=== PATIENT | male | born 1975 | race Caucasian/White ===

== ENCOUNTER 2016-12-21 12:04 | Emergency (ER) | payer MEDICARE, MEDICAID ==
[~2016-12-21 12:04] MED LIST: ASPI81TA85 PO; OXYC15TA76 PO; SERT-138 PO; SIMV40TA2 PO; TRAM300T9 PO; ZOCO80TA; ZOLO50TA PO
[2016-12-21] MEDS ORDERED: PERCOCET 5MG/325MG TAB As Ordered ONE (13:10)
[2016-12-21] MEDS ORDERED: KETOROLAC 30 MG/ML VIAL (J1885) As Ordered ONE (13:10)
[2016-12-21] MEDS ORDERED: ADACEL/BOOSTRIX VACCINE (DIPHTH/PERTUSS/ACELL/TETANUS)0.5ML SYR (90715) As Ordered ONE (13:10)
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
--- NOTE | 2016-12-21 14:21 | REP ---
MANDIBLE SERIES: Four views. HISTORY: Mandibular injury. FINDINGS: The bony mandible appears intact. No condylar or mandible body fracture is seen. There are carious teeth at the angle of the mandible on the left posteriorly. No bony destructive lesion is seen. IMPRESSION: No fracture seen. Carious teeth. Signed by Delmar Staley MD 12/21/2016 02:25 P
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
--- NOTE | 2016-12-21 14:50 | EDDOCDS ---
Physician Documentation [facility] Name: Charles Rea Age: 41 yrs Sex: Male : 1975 Arrival Date: 12/21/2016 Time: 12:04 Bed I6 / 28 Private MD: Angy Meza Disposition: 12/21/16 14:32 Discharged to Home/Self Care. Impression: Nondisplaced oblique fracture of shaft of left fibula - DISTAL LEFT FIB, Jaw pain - CONTUSION JAW. - Condition is Stable. - Discharge Instructions: Ankle Fracture, Crutch Use. - Prescriptions for [place] 5- 325 mg Oral Tablet - take 1 tablet by ORAL route every 6 hours As needed MDD: 4 tabs; 20 tablet. - Medication Reconciliation, Local Pharmacy Hours form. - Follow up: Emergency Department; When: As needed; Reason: Worsening of conditions. Follow up: [facility]; When: Call to arrange an appointment; Reason: Wound/Symptom Recheck, Recheck today's complaints, Continuance of care, To establish care. - Problem is new. - Symptoms have improved. Historical: - Allergies: no known allergies; - Home Meds: 1. Tramadol XR daily 2. atorvastatin 10 mg oral tab 1 tab once daily 3. Zoloft 25 mg Oral tab 1 tab once daily - PMHx: Hypercholesterolemia; Depression; back pain; - PSHx: Disc surgery; Appendectomy; - Social history: Smoking status: Patient states former smoker of tobacco. No barriers to communication noted, The patient speaks fluent [place], Speaks appropriately for age, Preferred Language:. - Family history: Not pertinent. - : The pt / caregiver states he / she is not on anticoagulants. Home medication list is obtained from the patient. - Exposure Risk Screening:: None identified. Vital Signs: 12/21 12:06 BP 151 / 97; Pulse 108; Resp 18 S; Temp 97.4(O); Pulse Ox 98% on R/A; Weight 99.79 kg / gr2 220 lbs (R); Height 5 ft. 11 in. (180.34 cm) (R); Pain 10/10; 14:45 BP 145 / 92 LA Sitting (auto/lg); Pulse 100; Resp 20; Temp 98.7; Pulse Ox 96% on R/A; bnb Pain 9/10; 12:06 Body Mass Index 30.68 (99.79 kg, 180.34 cm) gr2 Procedures: 14:19 Fracture care/splinting: (Stabilizing Care) Splint applied to left leg using Scotchcast dt4 applied by myself. Examined by me, post splint application: neurovascular intact, brisk capillary refill noted, Patient tolerated well, SUGAR TONG SPLINT APPLIED TO PT'S LEFT ANKLE/LOWER LEG. TOLERATED WELL.. MDM: 13:05 ketorolac 60 mg IM once ordered. dt4 13:05 oxyCODONE-acetaminophen 5 mg-325 mg 1 tabs PO once ordered. dt4 13:06 Ankle, Complete Ordered. EDMS 13:06 Mandible Ordered. EDMS 13:06 Tetanus- Diptheria-Acellular Pertussis 0.5 ml IM once; Routine booster 10-64yrs, >64 dt4 with child contact [employer] ordered. 13:53 Financial registration complete. lg 14:19 Crutches ordered. dt4 14:19 Splint Affected Extremity ordered. 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 Exp: 01/05/2019. Lot #: [id number]. } Route: IM; Site: left deltoid; 13:18 Drug: oxyCODONE-acetaminophen 1 tabs [oxycodone-acetaminophen 5 mg-325 mg tablet (1 jf3 tabs)] Route: PO; 13:19 Drug: ketorolac 60 mg [ketorolac 30 mg/mL (1 mL) injection solution (2 mL)] Route: IM; jf3 Site: right gluteus; Signatures: Dispatcher [employer] EDEze Holley,KEELY RN Hai Morrison, Jonh Reg Meche JonesRN RN jo3 Aleyda Young, PA-C PAMiltonC dt4 Celso Kendrick RN RN jf3 MTDD
--- NOTE | 2016-12-23 15:51 | EDDOCDS ---
Physician Documentation [facility] Name: Charles Rea Jr Age: 41 yrs Sex: Male : 1975 Arrival Date: 12/21/2016 Time: 12:04 Bed I6 / 28 Private MD: Angy Meza Disposition: 12/21/16 14:32 Discharged to Home/Self Care. Impression: Nondisplaced oblique fracture of shaft of left fibula - DISTAL LEFT FIB, Jaw pain - CONTUSION JAW. - Condition is Stable. - Discharge Instructions: Ankle Fracture, Crutch Use. - Prescriptions for [place] 5- 325 mg Oral Tablet - take 1 tablet by ORAL route every 6 hours As needed MDD: 4 tabs; 20 tablet. - Medication Reconciliation, Local Pharmacy Hours form. - Follow up: Emergency Department; When: As needed; Reason: Worsening of conditions. Follow up: [facility]; When: Call to arrange an appointment; Reason: Wound/Symptom Recheck, Recheck today's complaints, Continuance of care, To establish care. - Problem is new. - Symptoms have improved. Historical: - Allergies: no known allergies; - Home Meds: 1. Tramadol XR daily 2. atorvastatin 10 mg oral tab 1 tab once daily 3. Zoloft 25 mg Oral tab 1 tab once daily - PMHx: Hypercholesterolemia; Depression; back pain; - PSHx: Disc surgery; Appendectomy; - Social history: Smoking status: Patient states former smoker of tobacco. No barriers to communication noted, The patient speaks fluent Tristanian, Speaks appropriately for age, Preferred Language:. - Family history: Not pertinent. - : The pt / caregiver states he / she is not on anticoagulants. Home medication list is obtained from the patient. - Exposure Risk Screening:: None identified. Vital Signs: 12/21 12:06 BP 151 / 97; Pulse 108; Resp 18 S; Temp 97.4(O); Pulse Ox 98% on R/A; Weight 99.79 kg / gr2 220 lbs (R); Height 5 ft. 11 in. (180.34 cm) (R); Pain 10/10; 14:45 BP 145 / 92 LA Sitting (auto/lg); Pulse 100; Resp 20; Temp 98.7; Pulse Ox 96% on R/A; bnb Pain 9/10; 12:06 Body Mass Index 30.68 (99.79 kg, 180.34 cm) gr2 Procedures: 14:19 Fracture care/splinting: (Stabilizing Care) Splint applied to left leg using Scotchcast dt4 applied by myself. Examined by me, post splint application: neurovascular intact, brisk capillary refill noted, Patient tolerated well, SUGAR TONG SPLINT APPLIED TO PT'S LEFT ANKLE/LOWER LEG. TOLERATED WELL.. MDM: 13:05 ketorolac 60 mg IM once ordered. dt4 13:05 oxyCODONE-acetaminophen 5 mg-325 mg 1 tabs PO once ordered. dt4 13:06 Ankle, Complete Ordered. EDMS 13:06 Mandible Ordered. EDMS 13:06 Tetanus- Diptheria-Acellular Pertussis 0.5 ml IM once; Routine booster 10-64yrs, >64 dt4 with child contact [place] [employer] ordered. 13:53 Financial registration complete. lg 14:19 Crutches ordered. dt4 14:19 Splint Affected Extremity ordered. dt4 15:31 [facility] Payment Agreement was scanned into [employer] and attached to record. lg 12/22 11:41 T-Sheet-- Draft Copy was scanned into [employer] and attached to record. gb 11:41 Radiology Report was scanned into [employer] and attached to record. 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 Exp: 01/05/2019. Lot #: [id number]. } Route: IM; Site: left deltoid; 13:18 Drug: oxyCODONE-acetaminophen 1 tabs [oxycodone-acetaminophen 5 mg-325 mg tablet (1 jf3 tabs)] Route: PO; 13:19 Drug: ketorolac 60 mg [ketorolac 30 mg/mL (1 mL) injection solution (2 mL)] Route: IM; jf3 Site: right gluteus; Signatures: Dispatcher [employer] EDMS Eze Chapman RN RN jmk Barnhardt, Gloria Reg Reg gb Hai Diaz, Reg Reg lg Meche Brown,KEELY RN jo3 Aleyda Young PA-C PAKandace dt4 Celso Kendrick,RN RN jf3 The chart was reviewed and I authenticate all verbal orders and agree with the evaluation and treatment provided.Attachments: 15:31 [facility] Payment Agreement lg 12/22 11:41 T-Sheet-- Draft Copy gb Chart Complete MTDD
--- NOTE | 2016-12-23 15:51 | EDDOCDS ---
Physician Documentation [facility] Name: Charles Rea Jr Age: 41 yrs Sex: Male : 1975 Arrival Date: 12/21/2016 Time: 12:04 Bed I6 / 28 Private MD: Angy Meza Disposition: 12/21/16 14:32 Discharged to Home/Self Care. Impression: Nondisplaced oblique fracture of shaft of left fibula - DISTAL LEFT FIB, Jaw pain - CONTUSION JAW. - Condition is Stable. - Discharge Instructions: Ankle Fracture, Crutch Use. - Prescriptions for [place] 5- 325 mg Oral Tablet - take 1 tablet by ORAL route every 6 hours As needed MDD: 4 tabs; 20 tablet. - Medication Reconciliation, Local Pharmacy Hours form. - Follow up: Emergency Department; When: As needed; Reason: Worsening of conditions. Follow up: [facility]; When: Call to arrange an appointment; Reason: Wound/Symptom Recheck, Recheck today's complaints, Continuance of care, To establish care. - Problem is new. - Symptoms have improved. Historical: - Allergies: no known allergies; - Home Meds: 1. Tramadol XR daily 2. atorvastatin 10 mg oral tab 1 tab once daily 3. Zoloft 25 mg Oral tab 1 tab once daily - PMHx: Hypercholesterolemia; Depression; back pain; - PSHx: Disc surgery; Appendectomy; - Social history: Smoking status: Patient states former smoker of tobacco. No barriers to communication noted, The patient speaks fluent Cameroonian, Speaks appropriately for age, Preferred Language:. - Family history: Not pertinent. - : The pt / caregiver states he / she is not on anticoagulants. Home medication list is obtained from the patient. - Exposure Risk Screening:: None identified. Vital Signs: 12/21 12:06 BP 151 / 97; Pulse 108; Resp 18 S; Temp 97.4(O); Pulse Ox 98% on R/A; Weight 99.79 kg / gr2 220 lbs (R); Height 5 ft. 11 in. (180.34 cm) (R); Pain 10/10; 14:45 BP 145 / 92 LA Sitting (auto/lg); Pulse 100; Resp 20; Temp 98.7; Pulse Ox 96% on R/A; bnb Pain 9/10; 12:06 Body Mass Index 30.68 (99.79 kg, 180.34 cm) gr2 Procedures: 14:19 Fracture care/splinting: (Stabilizing Care) Splint applied to left leg using Scotchcast dt4 applied by myself. Examined by me, post splint application: neurovascular intact, brisk capillary refill noted, Patient tolerated well, SUGAR TONG SPLINT APPLIED TO PT'S LEFT ANKLE/LOWER LEG. TOLERATED WELL.. MDM: 13:05 ketorolac 60 mg IM once ordered. dt4 13:05 oxyCODONE-acetaminophen 5 mg-325 mg 1 tabs PO once ordered. dt4 13:06 Ankle, Complete Ordered. EDMS 13:06 Mandible Ordered. EDMS 13:06 Tetanus- Diptheria-Acellular Pertussis 0.5 ml IM once; Routine booster 10-64yrs, >64 dt4 with child contact [place] [employer] ordered. 13:53 Financial registration complete. lg 14:19 Crutches ordered. dt4 14:19 Splint Affected Extremity ordered. dt4 15:31 [facility] Payment Agreement was scanned into [employer] and attached to record. lg 12/22 11:41 T-Sheet-- Draft Copy was scanned into [employer] and attached to record. gb 11:41 Radiology Report was scanned into [employer] and attached to record. 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 Exp: 01/05/2019. Lot #: [id number]. } Route: IM; Site: left deltoid; 13:18 Drug: oxyCODONE-acetaminophen 1 tabs [oxycodone-acetaminophen 5 mg-325 mg tablet (1 jf3 tabs)] Route: PO; 13:19 Drug: ketorolac 60 mg [ketorolac 30 mg/mL (1 mL) injection solution (2 mL)] Route: IM; jf3 Site: right gluteus; Signatures: Dispatcher [employer] EDMS Eze Chapman RN RN jmk Barnhardt, Gloria Reg Reg gb Hai Diaz, Reg Reg lg Meche Brown,KEELY RN jo3 Aleyda Young PA-C PAKandace dt4 Celso Kendrick,RN RN jf3 The chart was reviewed and I authenticate all verbal orders and agree with the evaluation and treatment provided.Attachments: 15:31 [facility] Payment Agreement lg 12/22 11:41 T-Sheet-- Draft Copy gb Chart Complete MTDD
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
== END 2016-12-21 14:49 | disposition home or self-care (01) ==
LOC: M ED 12:04
DX: S82.435A Nondisplaced oblique fracture of shaft of left fibula, initial encounter for closed fracture (principal); S00.83XA Contusion of other part of head, initial encounter; V86.02XA Driver of snowmobile injured in traffic accident, initial encounter; Y92.89 Other specified places as the place of occurrence of the external cause; Y93.29 Activity, other involving ice and snow; Y99.8 Other external cause status; E78.00 Pure hypercholesterolemia, unspecified; F32.9 Major depressive disorder, single episode, unspecified; M54.9 Dorsalgia, unspecified; Z87.891 Personal history of nicotine dependence; Z79.899 Other long term (current) drug therapy
CPT/HCPCS: 29505; 70110; 73610; 90715; 96372; 99283; J1885

== ENCOUNTER → 2017-01-17 | Outpatient (REF) | payer MEDICARE, MEDICAID ==
[2017-01-17 13:23] LABS: FOLATE 11.6 NG/ML
== END ==
LOC: M SFHCADAM 10:21
PROVIDERS: ATTEND Physician Assistant
DX: G25.81 Restless legs syndrome (principal)
CPT/HCPCS: 82607; 82746; G0463

== ENCOUNTER → 2017-08-22 | Outpatient (REF) | payer MEDICARE, MEDICAID ==
[2017-08-22 19:54] LABS: ALBUMIN 3.6 GM/DL (3.2-5.2); ALBUMIN/GLOBULIN RATIO 1.03 (1.00-1.93); ALKALINE PHOSPHATASE 140 U/L (45-117); ALT/SGPT 42 U/L (12-78); ANION GAP 7 MEQ/L (8-16); AST/SGOT 22 U/L (15-37); BILIRUBIN,TOTAL 0.9 MG/DL (0.2-1.0); BLOOD UREA NITROGEN 13 MG/DL (7-18); CALCIUM LEVEL 9.1 MG/DL (8.5-10.1); CARBON DIOXIDE LEVEL 30 MEQ/L (21-32); CHLORIDE LEVEL 104 MEQ/L (98-107); CHOLESTEROL LEVEL 184 MG/DL (<200); CREATININE FOR GFR 0.99 MG/DL (0.70-1.30); FREE T4 1.03 NG/DL (0.76-1.46); GLOMERULAR FILTRATION RATE > 60.0 (>60); GLUCOSE, FASTING 83 MG/DL (70-105); SODIUM LEVEL 141 MEQ/L (136-145); TOTAL PROTEIN 7.1 GM/DL (6.4-8.2); TRIGLYCERIDES LEVEL 297 MG/DL (<150)
[2017-08-22 20:15] LABS: MEAN CORPUSCULAR HEMOGLOBIN 27.9 pg (27.0-33.0); MEAN CORPUSCULAR HGB CONC 31.6 g/dl (32.0-36.5); MEAN CORPUSCULAR VOLUME 88.1 fl (80.0-96.0); RED CELL DISTRIBUTION WIDTH 12.7 % (11.5-14.5); WHITE BLOOD COUNT 11.1 10^3/uL (4.0-10.0)
[2017-08-31 13:59] LABS: SUMMARY SEE SEPARATE REPORT
== END ==
LOC: M SFHCADAM 13:39
PROVIDERS: ATTEND Physician Assistant
DX: F11.90 Opioid use, unspecified, uncomplicated (principal); R10.9 Unspecified abdominal pain; F41.9 Anxiety disorder, unspecified; G25.81 Restless legs syndrome; Z79.82 Long term (current) use of aspirin; Z79.891 Long term (current) use of opiate analgesic; Z79.899 Other long term (current) drug therapy; Z87.442 Personal history of urinary calculi; Z86.73 Personal history of transient ischemic attack (TIA), and cerebral infarction without residual deficits

== ENCOUNTER → 2017-09-12 | Outpatient (CLI) | payer MEDICARE, MEDICAID ==
[~2017-09-12] MED LIST changes: +ISOVUE-370 76% 100ML VIAL (Q9967) As Ordered ONE
--- NOTE | 2017-09-12 17:31 | REP ---
CT abdomen pelvis without and with IV contrast, multiphase imaging: Comparison is 09/03/2015. On the images without IV contrast. There is a 2 mm nonobstructive calculus at the mid pole of the right kidney. There is a 2 mm nonobstructive calculus at the mid pole left kidney. There is no hydronephrosis. There are no ureteral calculi. There are no bladder calculi. After IV contrast. No renal masses or cysts are identified. The adrenals are unremarkable. No bladder masses are identified. The visualized lung galaviz are unremarkable. The hepatic parenchyma is unremarkable. There is a gallbladder calculus with rim calcification. The pancreas and spleen are unremarkable. The abdominal aorta is unremarkable. There is no bowel distension or obstruction. Pelvis: The the patient indicates he has an appendectomy. There are surgical clips in the abdominal right lower quadrant. There is beam-hardening artifact from lumbar spine surgery. There is mild wall thickening of the descending colon and sigmoid colon, nonspecific, artifact from under distension versus colitis in the appropriate clinical setting. No pelvic ascites or adenopathy. Impression: There is a 2 mm nonobstructive right renal calculus and 2 mm nonobstructive left renal calculus. There are no ureteral calculi. There is no hydronephrosis. No renal or bladder masses are identified. There is an appendectomy. Colitis of the descending colon and sigmoid colon in the appropriate clinical setting versus artifact from under distension. Gallbladder calculus. Surgical clips in the abdominal right lower quadrant. Signed by Erwin Yun MD 09/12/2017 05:23 P
== END ==
LOC: M RAD 15:50
PROVIDERS: ATTEND Nurse Practitioner Women's Health
DX: R31.0 Gross hematuria (principal); N20.0 Calculus of kidney; K80.20 Calculus of gallbladder without cholecystitis without obstruction
CPT/HCPCS: 74178; Q9967

== ENCOUNTER → 2018-05-17 | Outpatient (REF) | payer MEDICARE, MEDICAID ==
[2018-05-17 19:55] LABS: ALBUMIN 3.9 GM/DL (3.2-5.2); ALKALINE PHOSPHATASE 148 U/L (45-117); ALT/SGPT 36 U/L (12-78); ANION GAP 7 MEQ/L (8-16); AST/SGOT 21 U/L (7-37); BILIRUBIN,TOTAL 0.7 MG/DL (0.2-1.0); BLOOD UREA NITROGEN 17 MG/DL (7-18); CALCIUM LEVEL 9.5 MG/DL (8.5-10.1); CARBON DIOXIDE LEVEL 30 MEQ/L (21-32); CHLORIDE LEVEL 105 MEQ/L (98-107); CREATININE FOR GFR 1.04 MG/DL (0.70-1.30); GLOMERULAR FILTRATION RATE > 60.0 (>60); GLUCOSE, FASTING 86 MG/DL (70-100); POTASSIUM SERUM 4.7 MEQ/L (3.5-5.1); SODIUM LEVEL 142 MEQ/L (136-145); TOTAL PROTEIN 7.8 GM/DL (6.4-8.2)
== END ==
LOC: M SFHCADAM 16:34
DX: I63.9 Cerebral infarction, unspecified (principal); I77.9 Disorder of arteries and arterioles, unspecified; E78.5 Hyperlipidemia, unspecified
CPT/HCPCS: 80053

== ENCOUNTER 2018-07-03 20:49 | Emergency (ER) | payer MEDICARE, MEDICAID ==
[2018-07-03] MEDS: METOCLOPRAMIDE INJ 10MG/2ML VIAL (J2765) IV (23:07)
[2018-07-03] MEDS: KETOROLAC 30 MG/ML VIAL (J1885) IV (23:07)
[2018-07-04] MEDS: ACETAMINOPHEN TAB 650MG DOSE (2X325MG) PO (00:13)
== END 2018-07-04 01:15 | disposition home or self-care (01) ==
LOC: M ED 07-04 01:15
DX: G43.909 Migraine, unspecified, not intractable, without status migrainosus (principal); J01.20 Acute ethmoidal sinusitis, unspecified; E78.9 Disorder of lipoprotein metabolism, unspecified; F41.9 Anxiety disorder, unspecified; F33.9 Major depressive disorder, recurrent, unspecified; Z79.899 Other long term (current) drug therapy; Z79.82 Long term (current) use of aspirin
CPT/HCPCS: J1885

== ENCOUNTER 2018-11-04 07:59 | Emergency (ER) | payer MEDICARE, MEDICAID ==
[2018-11-04 08:32] LABS: HEMATOCRIT 46.1 % (42.0-52.0); MEAN CORPUSCULAR HGB CONC 32.5 g/dl (32.0-36.5); PLATELET COUNT, AUTOMATED 322 10^3/uL (150-450); RED BLOOD COUNT 5.36 10^6/uL (4.30-6.10); RED CELL DISTRIBUTION WIDTH 12.9 % (11.5-14.5); WHITE BLOOD COUNT 10.5 10^3/uL (4.0-10.0)
[2018-11-04 08:55] LABS: AMPHETAMINES LEVEL URINE NEGATIVE (NEGATIVE); BARBITURATES URINE NEGATIVE (NEGATIVE); BENZODIAZEPINES URINE NEGATIVE (NEGATIVE); CANNABINOIDS URINE NEGATIVE (NEGATIVE); COCAINE METABOLITE URINE NEGATIVE (NEGATIVE); METHADONE URINE NEGATIVE (NEGATIVE); OPIATES URINE NEGATIVE (NEGATIVE); PHENCYCLIDINE URINE NEGATIVE (NEGATIVE)
[2018-11-04 09:41] LABS: ACETAMINOPHEN LEVEL < 2.0 UG/ML (10.0-30.0); ALBUMIN 3.9 GM/DL (3.2-5.2); ALBUMIN/GLOBULIN RATIO 1.03 (1.00-1.93); ALKALINE PHOSPHATASE 131 U/L (45-117); ALT/SGPT 35 U/L (12-78); ANION GAP 8 MEQ/L (8-16); AST/SGOT 25 U/L (7-37); BILIRUBIN,DIRECT 0.2 MG/DL (0.0-0.2); BILIRUBIN,TOTAL 1.1 MG/DL (0.2-1.0); BLOOD UREA NITROGEN 10 MG/DL (7-18); CALCIUM LEVEL 9.1 MG/DL (8.5-10.1); CARBON DIOXIDE LEVEL 26 MEQ/L (21-32); CHLORIDE LEVEL 108 MEQ/L (98-107); ETHYL ALCOHOL (ETHANOL) 0.007 % (0.000-0.010); GLOMERULAR FILTRATION RATE > 60.0 (>60); GLUCOSE, FASTING 110 MG/DL (70-100); POTASSIUM SERUM 4.2 MEQ/L (3.5-5.1); SALICYLATE LEVEL < 1.7 MG/DL (5.0-30.0); SODIUM LEVEL 142 MEQ/L (136-145); TOTAL PROTEIN 7.7 GM/DL (6.4-8.2)
[2018-11-04] MEDS: traMADol ER 100MG TABLET (ULTRAM ER) PO (10:02)
[2018-11-04] MEDS: ATORVASTATIN 20 MG TAB PO (10:02)
== END 2018-11-04 15:58 ==
LOC: M ED 07:59
DX: R45.851 Suicidal ideations (principal); E78.70 Disorder of bile acid and cholesterol metabolism, unspecified; F17.210 Nicotine dependence, cigarettes, uncomplicated; Z79.899 Other long term (current) drug therapy; Z79.82 Long term (current) use of aspirin
CPT/HCPCS: 93005

== ENCOUNTER → 2018-12-04 | Outpatient (REF) | payer MEDICARE, MEDICAID ==
[~2018-12-04] MED LIST changes: +ATOR1TAB21 PO; +DOXY100C37 PO; +IMIT20SP; -ISOVUE-370 76% 100ML VIAL (Q9967) As Ordered ONE
[2018-12-04 20:14] LABS: HEMATOCRIT 51.1 % (42.0-52.0); HEMOGLOBIN 15.9 g/dl (13.5-17.5); MEAN CORPUSCULAR HEMOGLOBIN 27.8 pg (27.0-33.0); MEAN CORPUSCULAR HGB CONC 31.1 g/dl (32.0-36.5); MEAN CORPUSCULAR VOLUME 89.5 fl (80.0-96.0); PLATELET COUNT, AUTOMATED 324 10^3/uL (150-450); RED BLOOD COUNT 5.71 10^6/uL (4.30-6.10); WHITE BLOOD COUNT 10.2 10^3/uL (4.0-10.0)
[2018-12-04 20:27] LABS: ALBUMIN 3.9 GM/DL (3.2-5.2); ALT/SGPT 36 U/L (12-78); BLOOD UREA NITROGEN 11 MG/DL (7-18); CALCIUM LEVEL 9.9 MG/DL (8.5-10.1); CARBON DIOXIDE LEVEL 30 MEQ/L (21-32); CHLORIDE LEVEL 104 MEQ/L (98-107); CHOLESTEROL LEVEL 214 MG/DL (<200); CHOLESTEROL RISK RATIO 4.115 (<5); CREATININE FOR GFR 0.98 MG/DL (0.70-1.30); FREE T4 1.11 NG/DL (0.76-1.46); GLOMERULAR FILTRATION RATE > 60.0 (>60); GLUCOSE, FASTING 99 MG/DL (70-100); HDL CHOLESTEROL 52 MG/DL (>40); LDL CHOLESTEROL 136 MG/DL (<100); NON-HDL-C 162 MG/DL; POTASSIUM SERUM 5.5 MEQ/L (3.5-5.1); SODIUM LEVEL 141 MEQ/L (136-145); THYROID STIMULATING HORMONE 0.973 uIU/ML (0.358-3.740); TOTAL PROTEIN 7.9 GM/DL (6.4-8.2); TRIGLYCERIDES LEVEL 131 MG/DL (<150)
== END ==
LOC: M SFHCADAM 11:49
PROVIDERS: ATTEND Physician Assistant
DX: I77.9 Disorder of arteries and arterioles, unspecified (principal); I63.9 Cerebral infarction, unspecified; E78.5 Hyperlipidemia, unspecified; N52.9 Male erectile dysfunction, unspecified
CPT/HCPCS: 80053; 80061; 84439; 84443; 85027; G0463

== ENCOUNTER → 2018-12-18 | Outpatient (CLI) | payer MEDICARE, MEDICAID ==
--- NOTE | 2018-12-18 14:27 | REP ---
CAROTID ULTRASOUND: Real-time ultrasound evaluation and duplex Doppler interrogation of the extracranial carotid vasculature is performed. There is mild to moderate partially calcified plaquing in both common carotid arteries and carotid bulbs extending somewhat into the internal carotid arteries. Luminal narrowing appears to be less than 50% bilaterally. There is elevated peak systolic velocity in both common carotid arteries as well as in the left internal carotid artery but this appears to be due to high cardiac output with normal ICA to CCA ratio's bilaterally. There does not appear to be significant stenosis of either internal carotid artery. There is normal direction of flow in both vertebral arteries. Multiple lymph nodes are seen in the neck soft-tissues bilaterally. The largest is in the left neck measuring 3.3 x 1.0 x 1.5 cm. RIGHT LEFT Peak systolic velocity ICA 78.7 cm/s 173 cm/s End diastolic velocity ICA 17.7 cm/s 54.9 cm/s Peak systolic velocity CCA 135 cm/s 144 cm/s Peak systolic velocity ECA 167 cm/s 180 cm/s ICA/CCA ratio 0.65 1.22 IMPRESSION: Elevated flow velocities in the common carotid arteries and left internal carotid artery most likely due to high cardiac output with normal ICA/CCA ratio's noted. There is mild to moderate partially calcified plaque in both carotid systems with luminal narrowing of the internal carotid arteries less than 50%. Several lymph nodes are seen in the neck soft-tissues. The largest is in the left neck measuring 3.3 x 1.0 x 1.5 cm, mildly enlarged. Electronically Signed by Erwin Mcmanus MD 12/18/2018 02:33 P
== END ==
LOC: M RAD 12:43
PROVIDERS: ATTEND Physician Assistant
DX: I77.9 Disorder of arteries and arterioles, unspecified (principal); I63.9 Cerebral infarction, unspecified; R59.0 Localized enlarged lymph nodes

== ENCOUNTER → 2019-01-23 | Outpatient (CLI) | payer MEDICAID, MEDICARE ==
[~2019-01-23] MED LIST changes: +ISOVUE-370 76% 100ML VIAL (Q9967) As Ordered ONE
--- NOTE | 2019-01-23 16:07 | REP ---
Soft tissue CT study of the neck with IV contrast: History: Cervical adenopathy. Carotid sonography from December 18, 2018 showed several lymph nodes in the neck soft tissues, the largest of which measures 3.3 x 1.[address] contrast dose: 75 ml of intravenous Isovue 370 is administered. Findings: Preliminary digital basketball scout radiograph is unremarkable. The submandibular and parotid glands are normal and symmetric. There are multiple carious mandibular and maxillary teeth bilaterally. No bony destructive lesion is seen. There is some mucosal thickening partially opacifying the ethmoid air cells bilaterally. No other paranasal sinus disease is appreciated. Thyroid lobes are normal and symmetric. There is some mild vascular calcification at the carotid bifurcations bilaterally, right more so than left. The largest anterior cervical lymph node on the right measures 2.5 cm in length x 1.1 cm x 1.7 cm. The largest anterior node on the left measures 2.5 x 1.0 x 1.3 cm. There is a posterior chain lymph node on the left measuring 1.3 x 0.8 x 1.4 cm. No mass or cyst is seen. Impression: Multiple carious maxillary and mandibular teeth. Mildly hypertrophied anterior cervical lymph nodes, one on each side. Electronically Signed by Delmar Staley MD 01/23/2019 05:15 P
== END ==
LOC: M RAD 14:59
PROVIDERS: ATTEND Physician Assistant
DX: R59.0 Localized enlarged lymph nodes (principal); K02.9 Dental caries, unspecified
CPT/HCPCS: 70491; Q9967

== ENCOUNTER → 2020-01-28 | Outpatient (REF) | payer MEDICARE, MEDICAID ==
[~2020-01-28] MED LIST changes: -ISOVUE-370 76% 100ML VIAL (Q9967) As Ordered ONE; +OXYC-1 PO; -OXYC15TA76 PO; -SIMV40TA2 PO; +SIMV40TA20 PO
[2020-01-28 13:46] LABS: HEMATOCRIT 49.6 % (42.0-52.0); HEMOGLOBIN 15.5 g/dl (13.5-17.5); MEAN CORPUSCULAR HGB CONC 31.3 g/dl (32.0-36.5); MEAN CORPUSCULAR VOLUME 89.7 fl (80.0-96.0); PLATELET COUNT, AUTOMATED 321 10^3/uL (150-450); RED BLOOD COUNT 5.53 10^6/uL (4.30-6.10); WHITE BLOOD COUNT 9.8 10^3/uL (4.0-10.0)
[2020-01-28 14:16] LABS: ALBUMIN 3.8 GM/DL (3.2-5.2); ALT/SGPT 41 U/L (12-78); BILIRUBIN,TOTAL 0.9 MG/DL (0.2-1.0); BLOOD UREA NITROGEN 16 MG/DL (7-18); CALCIUM LEVEL 9.7 MG/DL (8.5-10.1); CARBON DIOXIDE LEVEL 31 MEQ/L (21-32); CHLORIDE LEVEL 106 MEQ/L (98-107); CHOLESTEROL LEVEL 226 MG/DL (<200); CHOLESTEROL RISK RATIO 5.022 (<5); CREATININE FOR GFR 0.96 MG/DL (0.70-1.30); FREE T4 1.11 NG/DL (0.76-1.46); GLOMERULAR FILTRATION RATE > 60.0 (>60); GLUCOSE, FASTING 110 MG/DL (70-100); HDL CHOLESTEROL 45 MG/DL (>40); LDL CHOLESTEROL 141 MG/DL (<100); NON-HDL-C 181 MG/DL; POTASSIUM SERUM 5.1 MEQ/L (3.5-5.1); SODIUM LEVEL 140 MEQ/L (136-145); TOTAL PROTEIN 7.5 GM/DL (6.4-8.2); TRIGLYCERIDES LEVEL 201 MG/DL (<150)
== END ==
LOC: M SFHCADAM 08:03
PROVIDERS: ATTEND Physician Assistant
DX: E78.5 Hyperlipidemia, unspecified (principal); M54.5 Low back pain; I63.9 Cerebral infarction, unspecified; G25.81 Restless legs syndrome; F11.90 Opioid use, unspecified, uncomplicated
CPT/HCPCS: 80053; 80061; 80307; 84439; 84443; 85027; G0463

== ENCOUNTER 2020-07-27 19:23 | Emergency (ER) | payer MEDICARE, MEDICAID ==
[~2020-07-27] VITALS: Ht 177.8 cm; Wt 112.1 kg
[~2020-07-27 19:23] MED LIST changes: -ASPI81TA85 PO; +ASPI81TA86 PO
[2020-07-27] MEDS ORDERED: ATOR80TA59 (19:32)
[2020-07-27] MEDS ORDERED: TRAM50TA2 (19:32)
[2020-07-27] MEDS ORDERED: SILD100T (19:32)
--- NOTE | 2020-07-27 19:55 | REPVR ---
PROCEDURE INFORMATION: Exam: XR Right Elbow Exam date and time: 07/27/2020 7:43 PM Age: 44 years old Clinical indication: Pain; Elbow; Right; Patient HX: No known injury TECHNIQUE: Imaging protocol: XR Right elbow. Views: 3 or more views. COMPARISON: No relevant prior studies available. FINDINGS: Bones/joints: Normal. Soft tissues: Normal. IMPRESSION: No acute findings. Electronically signed by: Nemesio Ward On 07/27/2020 19:55:03 PM
[2020-07-27 20:08] LABS: BASO # 0.1 10^3/uL (0.0-0.2); BASO % 0.5 % (0.0-1.0); EOS # 0.4 10^3/uL (0.0-0.5); EOS % 2.9 % (0.0-3.0); HEMOGLOBIN 13.9 g/dl (13.5-17.5); LYMPH # 4.1 10^3/uL (1.5-5.0); LYMPH % 32.1 % (24.0-44.0); MEAN CORPUSCULAR HEMOGLOBIN 28.5 pg (27.0-33.0); MEAN CORPUSCULAR HGB CONC 32.3 g/dl (32.0-36.5); MEAN CORPUSCULAR VOLUME 88.1 fl (80.0-96.0); MONO # 0.9 10^3/uL (0.0-0.8); MONO % 7.2 % (0.0-5.0); NEUTROPHILS # 7.3 10^3/uL (1.5-8.5); NEUTROPHILS % 56.8 % (36.0-66.0); PLATELET COUNT, AUTOMATED 309 10^3/uL (150-450); RED BLOOD COUNT 4.88 10^6/uL (4.30-6.10); WHITE BLOOD COUNT 12.9 10^3/uL (4.0-10.0)
[2020-07-27 20:43] LABS: BLOOD UREA NITROGEN 15 MG/DL (7-18); CALCIUM LEVEL 9.1 MG/DL (8.5-10.1); CARBON DIOXIDE LEVEL 29 MEQ/L (21-32); CHLORIDE LEVEL 105 MEQ/L (98-107); CREATININE FOR GFR 1.01 MG/DL (0.70-1.30); GLOMERULAR FILTRATION RATE > 60.0 (>60); GLUCOSE, FASTING 120 MG/DL (70-100); POTASSIUM SERUM 4.3 MEQ/L (3.5-5.1); SODIUM LEVEL 139 MEQ/L (136-145)
[2020-07-27] MEDS ORDERED: BACTRIM 160MG/800MG DS TAB PO ONE (21:15)
[2020-07-27] MEDS ORDERED: BACT800T5 PO (21:23)
[2020-07-27 21:30] VITALS: BP 138/76
== END 2020-07-27 21:31 | disposition home or self-care (01) ==
LOC: M ED 19:23
DX: L03.113 Cellulitis of right upper limb (principal); Z79.82 Long term (current) use of aspirin; Z79.899 Other long term (current) drug therapy

== ENCOUNTER → 2021-02-04 | Outpatient (CLI) | payer MEDICARE, MEDICAID ==
[~2021-02-04] MED LIST changes: +ATOR80TA59; +BACT800T5 PO; +SILD100T; +TRAM50TA2
--- NOTE | 2021-02-04 08:15 | REP ---
INDICATION: CHEST WALL PAIN COMPARISON: None. TECHNIQUE: Frontal view of the chest with multiple views of the left hemithorax. FINDINGS: Frontal view of the chest demonstrates no acute cardiopulmonary process, contusion, effusion, or pneumothorax. Multiple views of the left hemithorax demonstrates no acute rib fracture/injury or pathology. IMPRESSION: Normal rib series. <Electronically signed by Onel Thomas > 02/04/21 0811
== END ==
LOC: M ADAMS 07:40
PROVIDERS: ATTEND Physician Assistant
DX: R07.89 Other chest pain (principal)
CPT/HCPCS: 71101; G0463

== ENCOUNTER → 2021-04-10 | Outpatient (CLI) | payer MEDICARE, MEDICAID ==
[~2021-04-10] MED LIST changes: -ATOR80TA59; +ATOR80TA59 PO; +ECOT81TA5 PO; -SILD100T; +SILD100T PO; -TRAM50TA2; +TRAM50TA2 PO
== END ==
LOC: M LABSMTC 10:34
PROVIDERS: ATTEND Anesthesiology
DX: Z01.812 Encounter for preprocedural laboratory examination (principal); Z11.52 Encounter for screening for COVID-19

== ENCOUNTER 2021-04-15 10:50 | Day surgery (SDC) | payer MEDICAID, MEDICARE ==
[~2021-04-15] VITALS: Ht 180.3 cm; Wt 108.4 kg
[~2021-04-15 10:50] MED LIST changes: +LIDOCAINE 2% 100MG/5ML SDV (FOR ANES.) As Ordered ONE; +NS 1,000 ML IV ONE; +propofoL 500 MG/50 ML VIAL As Ordered ONE
--- NOTE | 2021-04-15 13:18 | ROOR ---
Patient Name: Charles Rea Procedure Date: 04/15/2021 1:02 PM Date of : 1975 Age: 45 Room: [facility] Gender: Male Note Status: Finalized Procedure: Upper GI endoscopy Indications: Abdominal pain in the left upper quadrant Providers: Silvestre Talamantes MD Referring MD: Hank Meza MD Requesting Provider: Medicines: Monitored Anesthesia Care Complications: No immediate complications. Procedure: Pre-Anesthesia Assessment: - The heart rate, respiratory rate, oxygen saturations, blood pressure, adequacy of pulmonary ventilation, and response to care were monitored throughout the procedure. The Endoscope was introduced through the mouth, and advanced to the second part of duodenum. The upper GI endoscopy was accomplished without difficulty. The patient tolerated the procedure well. Findings: Mildly severe esophagitis with no bleeding was found at the gastroesophageal junction. Biopsies were taken with a cold forceps for histology. The exam of the esophagus was otherwise normal. The entire examined stomach was normal. The examined duodenum was normal. Impression: - Mildly severe reflux esophagitis. Biopsied. - Normal stomach. - Normal examined duodenum. Recommendation: - Use Prilosec (omeprazole) 20 mg PO daily for 3 months. - (the script was sent to your pharmacy on file) - Follow an antireflux regimen. Procedure Code(s): --- Professional --- 02672, Esophagogastroduodenoscopy, flexible, transoral; with biopsy, single or multiple Diagnosis Code(s): --- Professional --- R10.12, Left upper quadrant pain K21.0, Gastro-esophageal reflux disease with esophagitis CPT copyright 2019 [employer]. All rights reserved. The codes documented in this report are preliminary and upon fireworks inspector review may be revised to meet current compliance requirements. Silvestre Talamantes MD Silvestre Talamantes MD 04/15/2021 1:18:25 PM Electronically signed by Silvestre Talamantes MD Number of Addenda: 0 Note Initiated On: 04/15/2021 1:02 PM Estimated Blood Loss: Estimated blood loss: none.
--- NOTE | 2021-04-15 13:30 | ROOR ---
Patient Name: Charles Rea Procedure Date: 04/15/2021 1:08 PM Date of : 1975 Age: 45 Room: [facility] Gender: Male Note Status: Finalized Procedure: Colonoscopy Indications: High risk colon cancer surveillance: Personal history of colonic polyps Providers: Silvestre Talamantes MD Referring MD: Hank Meza MD Requesting Provider: Medicines: Monitored Anesthesia Care Complications: No immediate complications. Procedure: Pre-Anesthesia Assessment: - The heart rate, respiratory rate, oxygen saturations, blood pressure, adequacy of pulmonary ventilation, and response to care were monitored throughout the procedure. The Colonoscope was introduced through the anus and advanced to the terminal ileum, with identification of the appendiceal orifice and IC valve. The colonoscopy was performed without difficulty. The patient tolerated the procedure well. The quality of the bowel preparation was good. Findings: The perianal and digital rectal examinations were normal. A diminutive polyp was found in the splenic flexure. The polyp was sessile. The polyp was removed with a jumbo cold forceps. Resection and retrieval were complete. The exam was otherwise without abnormality on direct and retroflexion views. Impression: - One diminutive polyp at the splenic flexure, removed with a jumbo cold forceps. Resected and retrieved. - The examination was otherwise normal on direct and retroflexion views. Recommendation: - Repeat colonoscopy in 5 years for surveillance. Procedure Code(s): --- Professional --- 00236, Colonoscopy, flexible; with biopsy, single or multiple Diagnosis Code(s): --- Professional --- K63.5, Polyp of colon Z86.010, Personal history of colonic polyps CPT copyright 2019 [employer]. All rights reserved. The codes documented in this report are preliminary and upon sound equipment mechanic review may be revised to meet current compliance requirements. Silvestre Talamantes MD Silvestre Talamantes MD 04/15/2021 1:29:58 PM Electronically signed by Silvestre Talamantes MD Number of Addenda: 0 Note Initiated On: 04/15/2021 1:08 PM Estimated Blood Loss: Estimated blood loss: none.
[2021-04-15 14:15] VITALS: BP 133/85
== END 2021-04-15 14:27 | disposition home or self-care (01) ==
LOC: M OPP 10:50
PROVIDERS: ATTEND Internal Medicine Gastroenterology
DX: Z12.11 Encounter for screening for malignant neoplasm of colon (principal); Z86.010 Personal history of colon polyps; D12.3 Benign neoplasm of transverse colon; R10.12 Left upper quadrant pain; K21.00 Gastro-esophageal reflux disease with esophagitis, without bleeding; Z79.82 Long term (current) use of aspirin; Z79.899 Other long term (current) drug therapy; Z87.891 Personal history of nicotine dependence

== ENCOUNTER → 2022-01-19 | Outpatient (REF) | payer MEDICARE, MEDICAID ==
[~2022-01-19] MED LIST changes: +DOXY-443 PO; -DOXY100C37 PO; -LIDOCAINE 2% 100MG/5ML SDV (FOR ANES.) As Ordered ONE; -NS 1,000 ML IV ONE; +TRAM300T5 PO; -TRAM300T9 PO; -propofoL 500 MG/50 ML VIAL As Ordered ONE
== END ==
LOC: M SFHCADAM 12:30
PROVIDERS: ATTEND Physician Assistant
DX: F11.20 Opioid dependence, uncomplicated (principal)

== ENCOUNTER → 2022-01-20 | Outpatient (REF) | payer MEDICARE, MEDICAID ==
[2022-01-20 13:51] LABS: HEMOGLOBIN A1c 5.1 %
[2022-01-20 14:03] LABS: ALBUMIN 3.6 GM/DL (3.2-5.2); ALT/SGPT 87 U/L (12-78); BILIRUBIN,TOTAL 0.9 MG/DL (0.2-1.0); BLOOD UREA NITROGEN 14 MG/DL (7-18); CALCIUM LEVEL 9.6 MG/DL (8.5-10.1); CARBON DIOXIDE LEVEL 30 MEQ/L (21-32); CHLORIDE LEVEL 107 MEQ/L (98-107); CHOLESTEROL LEVEL 230 MG/DL (<200); CHOLESTEROL RISK RATIO 4.791 (<5); CREATININE FOR GFR 0.94 MG/DL (0.70-1.30); GLOMERULAR FILTRATION RATE > 60.0 (>60); GLUCOSE, FASTING 110 MG/DL (70-100); HDL CHOLESTEROL 48 MG/DL (>40); LDL CHOLESTEROL 158 MG/DL (<100); NON-HDL-C 182 MG/DL; POTASSIUM SERUM 4.6 MEQ/L (3.5-5.1); SODIUM LEVEL 142 MEQ/L (136-145); TOTAL PROTEIN 7.5 GM/DL (6.4-8.2); TRIGLYCERIDES LEVEL 121 MG/DL (<150)
[2022-01-20 16:29] LABS: FREE T4 0.97 NG/DL (0.76-1.46)
== END ==
LOC: M SFHCADAM 07:51
PROVIDERS: ATTEND Physician Assistant
DX: E78.5 Hyperlipidemia, unspecified (principal); I63.9 Cerebral infarction, unspecified; F41.9 Anxiety disorder, unspecified; M54.50 Low back pain, unspecified; G89.29 Other chronic pain; I77.9 Disorder of arteries and arterioles, unspecified; Z13.1 Encounter for screening for diabetes mellitus; F11.20 Opioid dependence, uncomplicated

== ENCOUNTER → 2022-01-26 | Outpatient (CLI) | payer MEDICARE, MEDICAID | LOC: M SOG 09:50 | PROVIDERS: ATTEND Orthopaedic Surgery Adult Reconstructive Orthopaedic Surgery | DX: M25.562 Pain in left knee (principal); M25.762 Osteophyte, left knee ==

== ENCOUNTER → 2022-01-26 | Outpatient (CLI) | payer MEDICAID, MEDICARE | LOC: M RAD 16:25 | PROVIDERS: ATTEND Physician Assistant | DX: I65.23 Occlusion and stenosis of bilateral carotid arteries (principal); M25.562 Pain in left knee; M25.762 Osteophyte, left knee ==

== ENCOUNTER → 2022-02-24 | Outpatient (CLI) | payer MEDICARE | LOC: M PLAIMG 07:48 | PROVIDERS: ATTEND Orthopaedic Surgery Adult Reconstructive Orthopaedic Surgery | DX: M22.2X2 Patellofemoral disorders, left knee (principal); S83.242A Other tear of medial meniscus, current injury, left knee, initial encounter; M94.262 Chondromalacia, left knee; M25.462 Effusion, left knee; M71.22 Synovial cyst of popliteal space [Baker], left knee; X58.XXXA Exposure to other specified factors, initial encounter; Y92.9 Unspecified place or not applicable; Y93.9 Activity, unspecified; Y99.9 Unspecified external cause status ==

== ENCOUNTER → 2022-03-17 | Outpatient (CLI) | payer MEDICARE | LOC: M RAD 08:21 | PROVIDERS: ATTEND Physician Assistant | DX: R74.8 Abnormal levels of other serum enzymes (principal); K76.0 Fatty (change of) liver, not elsewhere classified; K80.20 Calculus of gallbladder without cholecystitis without obstruction ==

== ENCOUNTER → 2022-04-06 | Outpatient (CLI) | payer MEDICARE | LOC: M LABSMTC 09:38 | PROVIDERS: ATTEND Anesthesiology | DX: Z01.812 Encounter for preprocedural laboratory examination (principal); Z20.822 Contact with and (suspected) exposure to COVID-19 ==

== ENCOUNTER 2022-04-11 08:52 | Day surgery (SDC) | payer MEDICARE ==
[~2022-04-11] VITALS: Ht 180.3 cm; Wt 111.1 kg
[~2022-04-11 08:52] MED LIST changes: +ACETAMINOPHEN 500 MG TAB PO ONE; +CelecoXIB 400 MG CAP PO ONE; +GABAPENTIN 300 MG CAP PO ONE; +ONDANSETRON 4MG/2ML VIAL IV ONE
[2022-04-11] MEDS ORDERED: LR 1,000 ML IV SCH ×2 (09:25→13:05)
[2022-04-11] MEDS ORDERED: MIDAZOLAM INJ 2MG/2ML VIAL (J2250 PER 1MG) As Ordered ONE (09:30)
[2022-04-11] MEDS ORDERED: dexameTHASONE 4 MG/ML 1ML VIAL (J1100 PER 1MG) As Ordered ONE (09:30)
[2022-04-11] MEDS ORDERED: fentaNYL 100 MCG/2 ML INJECTION As Ordered ONE (09:30)
[2022-04-11] MEDS ORDERED: propofoL 200 MG/20 ML VIAL As Ordered ONE ×2 (09:30→11:48)
[2022-04-11] MEDS ORDERED: LIDOCAINE 2% 100MG/5ML SDV (FOR ANES.) As Ordered ONE (09:30)
[2022-04-11] MEDS ORDERED: ONDANSETRON 4MG/2ML VIAL As Ordered ONE (09:31)
[2022-04-11] MEDS ORDERED: BUPIVACAINE/EPIN 0.5% 30 ML VIAL As Ordered ONE (11:22)
[2022-04-11] MEDS ORDERED: EPINEPHrine INJ 1 MG/ML 1ML AMP As Ordered ONE (11:22)
[2022-04-11] MEDS ORDERED: METOCLOPRAMIDE INJ 10MG/2ML VIAL (J2765 PER 1) IV PRN (13:05)
[2022-04-11] MEDS ORDERED: MORPHINE 2 MG/ML 1ML VIAL IV PRN (13:05)
[2022-04-11] MEDS ORDERED: INSULIN LISPRO (NovoLOG) PER UNIT SC PRN (13:05)
[2022-04-11] MEDS ORDERED: ONDANSETRON 4MG/2ML VIAL IV PRN (13:05)
[2022-04-11] MEDS: oxyCODONE 5MG TAB PO PRN ×2 (13:17→13:48)
[2022-04-11] MEDS: fentaNYL 100 MCG/2 ML INJECTION IV PRN ×4 (13:31→13:50)
[2022-04-11] MEDS ORDERED: oxyCODONE 5MG TAB PO ONE (13:35)
[2022-04-11 14:20] VITALS: BP 160/89
== END 2022-04-11 15:06 | disposition home or self-care (01) ==
LOC: M SDC 08:52
PROVIDERS: ATTEND Orthopaedic Surgery Adult Reconstructive Orthopaedic Surgery
DX: M22.2X2 Patellofemoral disorders, left knee (principal); M94.262 Chondromalacia, left knee; F32.A Depression, unspecified; F41.9 Anxiety disorder, unspecified; K21.00 Gastro-esophageal reflux disease with esophagitis, without bleeding; Z87.891 Personal history of nicotine dependence; Z88.8 Allergy status to other drugs, medicaments and biological substances; K76.0 Fatty (change of) liver, not elsewhere classified; Z86.16 Personal history of COVID-19; Z79.82 Long term (current) use of aspirin
CPT/HCPCS: 29873; 29880; J0171; J1100; J2250; J2270; J2405; J3010

== ENCOUNTER → 2022-06-26 | Outpatient (CLI) | payer MEDICARE ==
[~2022-06-26] MED LIST changes: -ACETAMINOPHEN 500 MG TAB PO ONE; -CelecoXIB 400 MG CAP PO ONE; -GABAPENTIN 300 MG CAP PO ONE; -ONDANSETRON 4MG/2ML VIAL IV ONE
== END ==
LOC: M LABSMTC 10:26
PROVIDERS: ATTEND Anesthesiology
DX: Z01.812 Encounter for preprocedural laboratory examination (principal); Z20.822 Contact with and (suspected) exposure to COVID-19

== ENCOUNTER → 2022-07-20 | Outpatient (REF) | payer MEDICARE, MEDICAID ==
[2022-07-20 13:43] LABS: ALBUMIN 3.5 GM/DL (3.2-5.2); ALT/SGPT 75 U/L (12-78); BILIRUBIN,TOTAL 1.1 MG/DL (0.2-1.0); BLOOD UREA NITROGEN 12 MG/DL (7-18); CALCIUM LEVEL 9.5 MG/DL (8.5-10.1); CARBON DIOXIDE LEVEL 29 MEQ/L (21-32); CHLORIDE LEVEL 107 MEQ/L (98-107); CHOLESTEROL LEVEL 215 MG/DL (<200); CHOLESTEROL RISK RATIO 4.673 (<5); CREATININE FOR GFR 0.95 MG/DL (0.70-1.30); GLOMERULAR FILTRATION RATE > 60.0 (>60); GLUCOSE, FASTING 90 MG/DL (70-100); HDL CHOLESTEROL 46 MG/DL (>40); LDL CHOLESTEROL 128 MG/DL (<100); NON-HDL-C 169 MG/DL; POTASSIUM SERUM 4.7 MEQ/L (3.5-5.1); SODIUM LEVEL 141 MEQ/L (136-145); TOTAL PROTEIN 7.5 GM/DL (6.4-8.2); TRIGLYCERIDES LEVEL 207 MG/DL (<150)
== END ==
LOC: M SFHCADAM 08:33
PROVIDERS: ATTEND Physician Assistant
DX: K76.0 Fatty (change of) liver, not elsewhere classified (principal); E78.5 Hyperlipidemia, unspecified

== ENCOUNTER 2023-05-25 20:35 | Emergency (ER) | payer MEDICAID, MEDICARE ==
[~2023-05-25] VITALS: Ht 180.3 cm; Wt 109.2 kg
[2023-05-25 21:28] LABS: BASO # 0.1 10^3/uL (0.0-0.2); BASO % 0.9 % (0.0-1.0); EOS # 0.3 10^3/uL (0.0-0.5); EOS % 2.3 % (0.0-3.0); HEMATOCRIT 46.9 % (42.0-52.0); HEMOGLOBIN 14.7 g/dl (13.5-17.5); LYMPH # 4.4 10^3/uL (1.5-5.0); LYMPH % 34.7 % (24.0-44.0); MEAN CORPUSCULAR HEMOGLOBIN 27.4 pg (27.0-33.0); MEAN CORPUSCULAR HGB CONC 31.3 g/dl (32.0-36.5); MEAN CORPUSCULAR VOLUME 87.5 fl (80.0-96.0); MONO % 7.7 % (2.0-8.0); NEUTROPHILS # 6.9 10^3/uL (1.5-8.5); PLATELET COUNT, AUTOMATED 312 10^3/uL (150-450); RED BLOOD COUNT 5.36 10^6/uL (4.30-6.10); WHITE BLOOD COUNT 12.8 10^3/uL (4.0-10.0)
[2023-05-25 21:53] LABS: CK-MB VALUE MASS 1.4 NG/ML (<3.6)
[2023-05-25 21:55] LABS: ALBUMIN 3.6 G/DL (3.2-5.2); BILIRUBIN,DIRECT 0.2 MG/DL (<0.4); BILIRUBIN,TOTAL 1.1 MG/DL (0.3-1.2); TOTAL PROTEIN 6.9 G/DL (5.7-8.2)
[2023-05-25 21:57] LABS: MB/CK RELATIVE INDEX 0.63 (< OR =4); THYROID STIMULATING HORMONE 0.976 uIU/ML (0.55-4.78)
[2023-05-25] MEDS ORDERED: ISOVUE-370 76% 100ML VIAL As Ordered ONE (21:57)
[2023-05-25 22:10] LABS: INR 0.96; PARTIAL THROMBOPLASTIN TIME 28.1 SECONDS (24.8-34.2)
[2023-05-25 23:47] VITALS: BP 137/80; TEMP 96.7; O2SAT 97
== END 2023-05-25 23:57 | disposition home or self-care (01) ==
LOC: M ED 20:35
DX: H02.401 Unspecified ptosis of right eyelid (principal); R07.89 Other chest pain; E78.5 Hyperlipidemia, unspecified; I69.30 Unspecified sequelae of cerebral infarction; Z79.82 Long term (current) use of aspirin; Z79.899 Other long term (current) drug therapy
CPT/HCPCS: 36415; 70450; 70496; 70498; 80047; 80076; 82550; 82553; 83519; 84443; 84484; 85025; 85610; 85730; 93005; 99284; Q9967

== ENCOUNTER → 2023-06-20 | Outpatient (REF) | payer MEDICARE, MEDICAID ==
[2023-06-20 13:29] LABS: HEMOGLOBIN 14.8 g/dl (13.5-17.5); MEAN CORPUSCULAR HEMOGLOBIN 27.4 pg (27.0-33.0); MEAN CORPUSCULAR HGB CONC 30.2 g/dl (32.0-36.5); MEAN CORPUSCULAR VOLUME 90.7 fl (80.0-96.0); PLATELET COUNT, AUTOMATED 319 10^3/uL (150-450); WHITE BLOOD COUNT 8.8 10^3/uL (4.0-10.0)
[2023-06-20 13:37] LABS: ALBUMIN 3.9 G/DL (3.2-5.2); ALKALINE PHOSPHATASE 161 U/L (46-116); ALT/SGPT 54 U/L (7.0-40); AST/SGOT 42 U/L (<34); BILIRUBIN,TOTAL 1.2 MG/DL (0.3-1.2); BLOOD UREA NITROGEN 10 MG/DL (9-23); CARBON DIOXIDE LEVEL 27 MMOL/L (20-31); CHLORIDE LEVEL 106 MMOL/L (98-107); CHOLESTEROL LEVEL 203 MG/DL (<200); CHOLESTEROL RISK RATIO 3.56 (<5); GLOMERULAR FILTRATION RATE > 60.0 (>60); GLUCOSE, FASTING 94 MG/DL (60-100); HDL CHOLESTEROL 56.9 MG/DL (>40); LDL CHOLESTEROL 128.9 MG/DL (<100); NON-HDL-C 146.1 MG/DL; POTASSIUM SERUM 4.9 MMOL/L (3.5-5.1); SODIUM LEVEL 143 MMOL/L (136-145); TOTAL PROTEIN 7.6 G/DL (5.7-8.2); TRIGLYCERIDES LEVEL 86 MG/DL (<150)
== END ==
LOC: M SFHCADAM 08:50
PROVIDERS: ATTEND Physician Assistant
DX: E78.5 Hyperlipidemia, unspecified (principal); G89.29 Other chronic pain; K76.0 Fatty (change of) liver, not elsewhere classified; I63.9 Cerebral infarction, unspecified; M54.42 Lumbago with sciatica, left side; F11.20 Opioid dependence, uncomplicated

== ENCOUNTER → 2023-10-25 | Outpatient (CLI) | payer MEDICARE, MEDICAID ==
[2023-10-25 16:18] LABS: INR 0.96; PROTHROMBIN TIME 12.5 SECONDS (12.5-14.5)
[2023-10-25 16:35] LABS: IMMUNOGLOBULIN A 491.2 MG/DL (40-350); IRON (FE) 135 UG/DL (65-175)
[2023-10-25 16:36] LABS: ALBUMIN 3.6 G/DL (3.2-5.2); ALKALINE PHOSPHATASE 149 U/L (46-116); ALT/SGPT 57 U/L (7.0-40); AST/SGOT 46 U/L (<34); BILIRUBIN,DIRECT 0.3 MG/DL (<0.4); BILIRUBIN,TOTAL 1.2 MG/DL (0.3-1.2); PERCENT SATURATION 35.4 % (19.7-50.0); TOTAL IRON BINDING CAPACITY 381 UG/DL (250-425); TOTAL PROTEIN 7.4 G/DL (5.7-8.2)
[2023-10-25 17:16] LABS: HEPATITIS B CORE ANTIBODY IGM NEGATIVE (NEGATIVE); HEPATITIS C VIRUS ABY INDEX 0.07 INDEX (<0.8)
== END ==
LOC: M LABDRWAD 11:40
PROVIDERS: ATTEND Internal Medicine Gastroenterology
DX: R93.3 Abnormal findings on diagnostic imaging of other parts of digestive tract (principal); R74.01 Elevation of levels of liver transaminase levels; Z86.39 Personal history of other endocrine, nutritional and metabolic disease

== ENCOUNTER → 2023-11-09 | Outpatient (CLI) | payer MEDICAID, MEDICARE | LOC: M RAD 07:43 | PROVIDERS: ATTEND Internal Medicine Gastroenterology | DX: R74.01 Elevation of levels of liver transaminase levels (principal) ==

== ENCOUNTER → 2023-12-22 | Outpatient (REF) | payer MEDICARE, MEDICAID ==
[2023-12-22 13:46] LABS: CHOLESTEROL RISK RATIO 3.32 (<5); HDL CHOLESTEROL 55.4 MG/DL (>40); LDL CHOLESTEROL 112.4 MG/DL (<100); NON-HDL-C 128.6 MG/DL
== END ==
LOC: M SFHCADAM 08:21
PROVIDERS: ATTEND Physician Assistant
DX: E78.00 Pure hypercholesterolemia, unspecified (principal)

== ENCOUNTER → 2024-10-15 | Outpatient (CLI) | payer MEDICAID, MEDICARE ==
[~2024-10-15] MED LIST changes: +DOXY-441 PO; -DOXY-443 PO
[2024-10-15 10:41] LABS: INR 0.94; PARTIAL THROMBOPLASTIN TIME 29.8 SECONDS (24.8-34.2); PROTHROMBIN TIME 12.9 SECONDS (12.5-14.5)
[2024-10-15 10:50] LABS: BASO # 0.1 10^3/uL (0.0-0.2); BASO % 1.1 % (0.0-1.0); EOS # 0.2 10^3/uL (0.0-0.5); EOS % 1.8 % (0.0-3.0); HEMATOCRIT 46.8 % (42.0-52.0); HEMOGLOBIN 14.8 g/dl (13.5-17.5); LYMPH # 2.9 10^3/uL (1.5-5.0); MEAN CORPUSCULAR HGB CONC 31.6 g/dl (32.0-36.5); MEAN CORPUSCULAR VOLUME 88.6 fl (80.0-96.0); MONO # 0.9 10^3/uL (0.0-0.8); MONO % 8.5 % (2.0-8.0); NEUTROPHILS # 6.6 10^3/uL (1.5-8.5); NEUTROPHILS % 61.1 % (36.0-66.0); PLATELET COUNT, AUTOMATED 355 10^3/uL (150-450); RED BLOOD COUNT 5.28 10^6/uL (4.30-6.10); WHITE BLOOD COUNT 10.8 10^3/uL (4.0-10.0)
[2024-10-15 11:09] LABS: ALBUMIN 3.6 G/DL (3.2-5.2); ALKALINE PHOSPHATASE 127 U/L (40-129); ALT/SGPT 41 U/L (7.0-40); AST/SGOT 33 U/L (<34); BILIRUBIN,TOTAL 1.2 MG/DL (0.3-1.2); BLOOD UREA NITROGEN 13 MG/DL (9-23); CALCIUM LEVEL 10.3 MG/DL (8.5-10.1); CARBON DIOXIDE LEVEL 30 MMOL/L (20-31); CHLORIDE LEVEL 105 MMOL/L (98-107); CHOLESTEROL LEVEL 204 MG/DL (<200); CHOLESTEROL RISK RATIO 4.33 (<5); CREATININE FOR GFR 0.84 MG/DL (0.70-1.30); GLOMERULAR FILTRATION RATE > 60.0 (>60); GLUCOSE, FASTING 97 MG/DL (60-100); HDL CHOLESTEROL 47.1 MG/DL (>40); LDL CHOLESTEROL 138.7 MG/DL (<100); NON-HDL-C 156.9 MG/DL; POTASSIUM SERUM 4.5 MMOL/L (3.5-5.1); SODIUM LEVEL 140 MMOL/L (136-145); TOTAL PROTEIN 7.5 G/DL (5.7-8.2); TRIGLYCERIDES LEVEL 91 MG/DL (<150)
[2024-10-15 11:46] LABS: HEMOGLOBIN A1c 5.1 % (4.0-6.0)
== END ==
LOC: M PLALAB 09:12
PROVIDERS: ATTEND Physician Assistant
DX: Z00.00 Encounter for general adult medical examination without abnormal findings (principal); K74.00 Hepatic fibrosis, unspecified; F11.20 Opioid dependence, uncomplicated; E78.00 Pure hypercholesterolemia, unspecified; M54.42 Lumbago with sciatica, left side; K75.81 Nonalcoholic steatohepatitis (NASH); I77.9 Disorder of arteries and arterioles, unspecified; Z86.73 Personal history of transient ischemic attack (TIA), and cerebral infarction without residual deficits; J98.8 Other specified respiratory disorders; Z79.899 Other long term (current) drug therapy

== ENCOUNTER → 2024-12-05 | Outpatient (CLI) | payer MEDICARE | LOC: M RAD 08:16 | PROVIDERS: ATTEND Physician Assistant | DX: K75.81 Nonalcoholic steatohepatitis (NASH) (principal); K74.00 Hepatic fibrosis, unspecified; N20.0 Calculus of kidney; Z90.49 Acquired absence of other specified parts of digestive tract ==

== ENCOUNTER → 2025-07-25 | Outpatient (REF) | payer MEDICARE ==
[2025-07-25 13:55] LABS: BASO # 0.1 10^3/uL (0.0-0.2); BASO % 1.2 % (0.0-1.0); EOS # 0.3 10^3/uL (0.0-0.5); EOS % 3.4 % (0.0-3.0); LYMPH # 2.6 10^3/uL (1.5-5.0); LYMPH % 28.9 % (24.0-44.0); MONO # 0.9 10^3/uL (0.0-0.8); MONO % 10.0 % (2.0-8.0); NEUTROPHILS # 5.0 10^3/uL (1.5-8.5); NEUTROPHILS % 56.2 % (36.0-66.0); PLATELET COUNT, AUTOMATED 335 10^3/uL (150-450)
[2025-07-25 14:01] LABS: ALT/SGPT 29 U/L (7.0-40); AST/SGOT 26 U/L (<34); CALCIUM LEVEL 9.8 MG/DL (8.5-10.1); CARBON DIOXIDE LEVEL 28 MMOL/L (20-31); CHLORIDE LEVEL 106 MMOL/L (98-107); CHOLESTEROL LEVEL 201 MG/DL (<200); CHOLESTEROL RISK RATIO 3.88 (<5); CREATININE FOR GFR 0.95 MG/DL (0.70-1.30); GLOMERULAR FILTRATION RATE > 90.0 (>60); LDL CHOLESTEROL 135.6 MG/DL (<100); NON-HDL-C 149.2 MG/DL; POTASSIUM SERUM 4.9 MMOL/L (3.5-5.1); SODIUM LEVEL 143 MMOL/L (136-145); TRIGLYCERIDES LEVEL 68 MG/DL (<150)
== END ==
LOC: M SFHCADAM 08:47
PROVIDERS: ATTEND Physician Assistant
DX: E78.00 Pure hypercholesterolemia, unspecified (principal); K76.0 Fatty (change of) liver, not elsewhere classified